=== PATIENT | male | born 1970 | race Hispanic/Latino ===

== ENCOUNTER 2017-04-22 00:18 | Inpatient (IN) | payer OTHER, SELFPAY ==
[~2017-04-22] VITALS: Ht 165.1 cm; Wt 101.8 kg
[2017-04-22] MEDS ORDERED: ONDANSETRON HCL 4 MG/2 ML VIAL ONE (01:12)
[2017-04-22] MEDS ORDERED: FAMOTIDINE/PF 20 MG/2 ML VIAL IV ONE ×2 (01:12→06:29)
[2017-04-22 01:28] LABS: BASOPHILS % (AUTO) 0.2 % (0.0-5.0); EOSINOPHILS % (AUTO) 1.8 % (0.0-8.0); HEMATOCRIT 43.7 % (42-54); LYMPHOCYTES % (AUTO) 9.3 % (21.0-51.0); MEAN CORPUSCULAR HEMOGLOBIN 32.5 pg (27.0-33.0); MEAN CORPUSCULAR HGB CONC 35.7 g/dL (32.0-36.0); NEUTROPHILS % (AUTO) 73.7 % (40.0-77.0); NUCLEATED RED BLOOD CELLS 0.1 % (0.0-0.19); PLATELET COUNT (AUTO) 251 K/uL (130-400); RED BLOOD CELL COUNT(AUTO) 4.81 MIL/uL (4.50-6.20); RED CELL DISTRIBUTION WIDTH 13.9 % (11.0-15.5)
[2017-04-22] MEDS ORDERED: HYOSCYAMINE SULFATE 0.125 MG TAB.SUBL SL ONE (01:51)
[2017-04-22 01:53] LABS: ALBUMIN 2.6 g/dL (3.5-5.0); BILIRUBIN,TOTAL 1.5 mg/dL (0.2-1.0); CREATININE 0.9 mg/dL (0.5-1.5); POTASSIUM 3.3 mmol/L (3.5-5.1); TOTAL PROTEIN, SERUM 7.5 g/dL (6.0-8.3)
[2017-04-22] MEDS ORDERED: IOPAMIDOL-370 75 ML VIAL IV ONE (02:17)
[2017-04-22 02:37] LABS: APPEARANCE,URINE Clear (CLEAR); BILIRUBIN,URINE Negative (NEGATIVE); COLOR,URINE Yellow (YELLOW); GLUCOSE, URINE (UA) Negative (NEGATIVE); KETONES,URINE 15 mg/dL (NEGATIVE); LEUKOCYTE ESTERASE ,URINE Negative (NEGATIVE); NITRATE,URINE Negative (NEGATIVE); OCCULT BLOOD,URINE Negative (NEGATIVE); PROTEIN,URINE Negative (NEGATIVE)
[2017-04-22 02:44] LABS: AMPHET/METH SCREEN,URINE NEGATIVE (NEGATIVE); BARBITURATE SCREEN, URINE NEGATIVE (NEGATIVE); BENZODIAZEPINES SCREEN,URINE NEGATIVE (NEGATIVE); CANNABINOID SCREEN,URINE NEGATIVE (NEGATIVE); COCAINE SCREEN,URINE NEGATIVE (NEGATIVE); OPIATE SCREEN,URINE NEGATIVE (NEGATIVE); PHENCYCLIDINE SCREEN,URINE NEGATIVE (NEGATIVE)
[2017-04-22] MEDS ORDERED: LEVOFLOXACIN 500 MG/D5W 100 ML 100 ML ONE (04:07)
[2017-04-22] MEDS ORDERED: METRONIDAZOLE 500MG/100ML BAG 100 ML ONE (04:08)
[2017-04-22] MEDS: SODIUM CHLORIDE 0.9% 1000ML 1,000 ML IV SCH ×3 (05:43→22:33)
[2017-04-22] MEDS ORDERED: ONDANSETRON HCL 4 MG/2 ML VIAL IV PRN (05:45)
[2017-04-22] MEDS ORDERED: POTASSIUM CHLORIDE 10MEQ/100ML 10 MEQ/100 ML ML IV SCH (05:45)
[2017-04-22] MEDS ORDERED: HYDRALAZINE HCL 20 MG/ML VIAL IV PRN (05:45)
[2017-04-22] MEDS ORDERED: POTASSIUM CHLORIDE 10 MEQ in SODIUM CHLORIDE 0.9% 100 ML IV SCH (07:57)
[2017-04-22] MEDS: MEROPENEM 1 GM VIAL IVP SCH ×3 (07:58→22:26)
[2017-04-22] MEDS ORDERED: SODIUM CHLORIDE 0.9% 1000ML 1,000 ML IV ONE (08:55)
[2017-04-22] MEDS: FAMOTIDINE/PF 20 MG/2 ML VIAL IV SCH ×2 (09:00→20:27)
[2017-04-22] MEDS ORDERED: MORPHINE SULFATE 2 MG/ML 1ML SYG ONE ×2 (09:00→12:58)
[2017-04-22 10:46] LABS: PARTIAL THROMBOPLASTIN TIME 29.2 SEC (26.3-35.5)
[2017-04-22 11:07] LABS: INR 1.04 (0.85-1.15); PROTHROMBIN TIME 10.9 SEC (9.6-11.6)
[2017-04-22] MEDS ORDERED: MEROPENEM 1GM IVPB PREMIXED 1 GM IV SCH (12:00)
[2017-04-22] MEDS ORDERED: MEROPENEM 1 GM VIAL ONE (12:58)
[2017-04-22] MEDS: FLUCONAZOLE 200 MG/NS 100 ML 100 ML IV SCH (17:00)
[2017-04-22 17:30] VITALS: BP 102/64
[2017-04-22] MEDS ORDERED: FLU VACC QS2017-18 36MOS UP/PF 60 MCG/0.5 ML ML IM ONE (18:45)
[2017-04-22 20:10] VITALS: BP 121/72
[2017-04-22] MEDS: MORPHINE SULFATE 2 MG/ML 1ML SYG IV PRN (20:33)
[2017-04-23 00:13] VITALS: BP 101/66
[2017-04-23 04:20] VITALS: BP 103/64
[2017-04-23 04:56] LABS: HEMATOCRIT 42.6 % (42-54); MEAN CORPUSCULAR HEMOGLOBIN 32.7 pg (27.0-33.0); MEAN CORPUSCULAR HGB CONC 35.4 g/dL (32.0-36.0); MEAN CORPUSCULAR VOLUME 92.3 fL (79-99); PLATELET COUNT (AUTO) 227 K/uL (130-400); RED BLOOD CELL COUNT(AUTO) 4.61 MIL/uL (4.50-6.20); RED CELL DISTRIBUTION WIDTH 13.2 % (11.0-15.5); WHITE BLOOD COUNT (AUTO) 7.2 K/uL (4.8-10.8)
[2017-04-23 05:16] LABS: CREATININE 1.1 mg/dL (0.5-1.5); MAGNESIUM 2.2 mg/dL (1.80-2.40); POTASSIUM 3.5 mmol/L (3.5-5.1)
[2017-04-23] MEDS: MEROPENEM 1 GM VIAL IVP SCH ×3 (06:01→22:02)
[2017-04-23 08:22] VITALS: BP 119/74
[2017-04-23] MEDS: FAMOTIDINE/PF 20 MG/2 ML VIAL IV SCH ×2 (09:14→20:50)
[2017-04-23 12:00] VITALS: BP 100/66
[2017-04-23] MEDS: SODIUM CHLORIDE 0.9% 1000ML 1,000 ML IV SCH ×2 (12:27→22:04)
[2017-04-23 16:00] VITALS: BP 101/74
[2017-04-23] MEDS: FLUCONAZOLE 200 MG/NS 100 ML 100 ML IV SCH (16:50)
[2017-04-23 20:00] VITALS: BP 117/69
[2017-04-24] VITALS: BP 102/62
[2017-04-24 04:00] VITALS: BP 110/70
[2017-04-24] MEDS: MEROPENEM 1 GM VIAL IVP SCH ×3 (05:49→22:38)
[2017-04-24 08:00] VITALS: BP 111/71
[2017-04-24] MEDS: SODIUM CHLORIDE 0.9% 1000ML 1,000 ML IV SCH ×2 (09:55→17:54)
[2017-04-24] MEDS: FAMOTIDINE/PF 20 MG/2 ML VIAL IV SCH ×2 (10:03→22:38)
[2017-04-24 12:00] VITALS: BP 113/80
[2017-04-24] MEDS ORDERED: SIMETHICONE 40 MG/0.6 ML ML PO PRN (12:45)
[2017-04-24] MEDS ORDERED: FISH1CAP20 PO (15:20)
[2017-04-24] MEDS ORDERED: ASPI-1005 PO (15:20)
[2017-04-24] MEDS ORDERED: MULT-1203 PO (15:20)
[2017-04-24] MEDS ORDERED: TELM1TAB34 PO (15:20)
[2017-04-24 15:50] VITALS: BP 129/93
[2017-04-24] MEDS: FLUCONAZOLE 200 MG/NS 100 ML 100 ML IV SCH (17:53)
[2017-04-24 20:00] VITALS: BP 126/76
[2017-04-25] VITALS (23 sets, daily range): BP systolic 114–145; BP diastolic 72–96
[2017-04-25] MEDS: SODIUM CHLORIDE 0.9% 1000ML 1,000 ML IV SCH (03:57)
[2017-04-25 04:46] LABS: HEMATOCRIT 43.2 % (42-54); MEAN CORPUSCULAR HEMOGLOBIN 32.4 pg (27.0-33.0); MEAN CORPUSCULAR HGB CONC 34.9 g/dL (32.0-36.0); MEAN CORPUSCULAR VOLUME 92.7 fL (79-99); PLATELET COUNT (AUTO) 245 K/uL (130-400); RED BLOOD CELL COUNT(AUTO) 4.66 MIL/uL (4.50-6.20); RED CELL DISTRIBUTION WIDTH 13.1 % (11.0-15.5); WHITE BLOOD COUNT (AUTO) 7.8 K/uL (4.8-10.8)
[2017-04-25 05:22] LABS: INR 1.16 (0.85-1.15); PARTIAL THROMBOPLASTIN TIME 27.8 SEC (26.3-35.5); PROTHROMBIN TIME 12.1 SEC (9.6-11.6)
[2017-04-25 05:29] LABS: MAGNESIUM 2.1 mg/dL (1.80-2.40); POTASSIUM 3.9 mmol/L (3.5-5.1)
[2017-04-25] MEDS: MEROPENEM 1 GM VIAL IVP SCH ×3 (06:04→22:06)
[2017-04-25] MEDS: FAMOTIDINE/PF 20 MG/2 ML VIAL IV SCH ×2 (08:41→22:06)
[2017-04-25] MEDS ORDERED: LACTATED RINGERS 1000ML 1,000 ML IV ONE (12:21)
[2017-04-25] MEDS ORDERED: MIDAZOLAM HCL 1 MG/ML 2ML VIAL ONE (12:58)
[2017-04-25] MEDS ORDERED: FENTANYL CITRATE PF 50 MCG/1 ML 2ML VIAL ONE (12:58)
[2017-04-25] MEDS ORDERED: ROCURONIUM BROMIDE 10MG/1ML 5ML VL ONE (13:21)
[2017-04-25] MEDS ORDERED: FENTANYL CITRATE PF 50 MCG/1 ML 5ML AMP IV ONE (13:21)
[2017-04-25] MEDS ORDERED: SUCCINYLCHOLINE 200MG/10ML SYR ONE (13:21)
[2017-04-25] MEDS ORDERED: ONDANSETRON HCL 4 MG/2 ML VIAL ONE ×2 (13:21→13:24)
[2017-04-25] MEDS ORDERED: PROPOFOL 10 MG/ML 20ML VIAL IV ONE (13:22)
[2017-04-25] MEDS ORDERED: ONDANSETRON HCL MDV 20ML 2 MG/ML VIAL ONE (15:49)
[2017-04-25] MEDS ORDERED: DEXAMETHASONE SOD PHOSPHATE 10MG/ML 1ML VIAL ONE (15:49)
[2017-04-25] MEDS ORDERED: MORPHINE SULFATE 10 MG/ML 1ML SYG ONE (15:50)
[2017-04-25] MEDS ORDERED: PHENYLEPHRINE HCL 10 MG/ML 1ML VIAL IV ONE (15:50)
[2017-04-25] MEDS ORDERED: LIDOCAINE HCL 2% JELLY 5 ML ONE (15:52)
[2017-04-25] MEDS ORDERED: MEPERIDINE-PF 25 MG/ML SYG ONE (17:04)
[2017-04-25] MEDS ORDERED: KETOROLAC TROMETHAMINE 30MG/ML ONE (17:04)
[2017-04-25] MEDS: D5W-1/2 NS/20MEQ KCL 1,000 ML IV SCH (19:06)
[2017-04-25] MEDS: FLUCONAZOLE 200 MG/NS 100 ML 100 ML IV SCH (19:08)
[2017-04-25] MEDS: MORPHINE SULFATE 4 MG/1ML SYG IV PRN (22:06)
[2017-04-26] MEDS: MORPHINE SULFATE 4 MG/1ML SYG IV PRN (02:30)
[2017-04-26] MEDS: D5W-1/2 NS/20MEQ KCL 1,000 ML IV SCH ×2 (03:27→14:55)
[2017-04-26 04:55] LABS: BASOPHILS % (AUTO) 0.2 % (0.0-5.0); EOSINOPHILS % (AUTO) 0.1 % (0.0-8.0); HEMATOCRIT 44.9 % (42-54); LYMPHOCYTES % (AUTO) 9.8 % (21.0-51.0); MEAN CORPUSCULAR HEMOGLOBIN 31.9 pg (27.0-33.0); MEAN CORPUSCULAR HGB CONC 34.4 g/dL (32.0-36.0); MEAN CORPUSCULAR VOLUME 92.6 fL (79-99); MONOCYTES % (AUTO) 8.5 % (3.0-13.0); NEUTROPHILS % (AUTO) 81.4 % (40.0-77.0); PLATELET COUNT (AUTO) 270 K/uL (130-400); RED BLOOD CELL COUNT(AUTO) 4.85 MIL/uL (4.50-6.20); WHITE BLOOD COUNT (AUTO) 12.4 K/uL (4.8-10.8)
[2017-04-26 05:01] LABS: POTASSIUM 4.3 mmol/L (3.5-5.1)
[2017-04-26] MEDS: MEROPENEM 1 GM VIAL IVP SCH ×3 (06:33→21:41)
[2017-04-26 08:11] VITALS: BP 115/88
[2017-04-26] MEDS: FAMOTIDINE/PF 20 MG/2 ML VIAL IV SCH ×2 (09:51→21:42)
[2017-04-26] MEDS ORDERED: KETOROLAC TROMETHAMINE 30MG/ML IM PRN (12:00)
[2017-04-26] MEDS ORDERED: PHENOL 177 ML BOTTLE PO PRN (12:00)
[2017-04-26 12:14] VITALS: BP 115/80
[2017-04-26] MEDS: MORPHINE SULFATE 2 MG/ML 1ML SYG IV PRN (12:54)
[2017-04-26 15:36] VITALS: BP 121/78
[2017-04-26] MEDS: FLUCONAZOLE 200 MG/NS 100 ML 100 ML IV SCH (17:32)
[2017-04-26 20:00] VITALS: BP 120/78
[2017-04-26] MEDS: KETOROLAC TROMETHAMINE 30MG/ML IV PRN (21:41)
[2017-04-27] VITALS (7 sets, daily range): BP systolic 110–135; BP diastolic 79–88
[2017-04-27] MEDS: MORPHINE SULFATE 2 MG/ML 1ML SYG IV PRN ×2 (01:02→19:50)
[2017-04-27] MEDS: D5W-1/2 NS/20MEQ KCL 1,000 ML IV SCH ×3 (01:07→18:46)
[2017-04-27 04:34] LABS: BASOPHILS % (AUTO) 0.4 % (0.0-5.0); EOSINOPHILS % (AUTO) 1.8 % (0.0-8.0); HEMATOCRIT 41.4 % (42-54); LYMPHOCYTES % (AUTO) 18.8 % (21.0-51.0); MEAN CORPUSCULAR HEMOGLOBIN 32.4 pg (27.0-33.0); MEAN CORPUSCULAR HGB CONC 34.9 g/dL (32.0-36.0); MEAN CORPUSCULAR VOLUME 92.7 fL (79-99); MONOCYTES % (AUTO) 9.6 % (3.0-13.0); NEUTROPHILS % (AUTO) 69.4 % (40.0-77.0); PLATELET COUNT (AUTO) 269 K/uL (130-400); RED BLOOD CELL COUNT(AUTO) 4.47 MIL/uL (4.50-6.20); RED CELL DISTRIBUTION WIDTH 13.1 % (11.0-15.5); WHITE BLOOD COUNT (AUTO) 10.2 K/uL (4.8-10.8)
[2017-04-27 04:46] LABS: CREATININE 0.9 mg/dL (0.5-1.5); POTASSIUM 3.9 mmol/L (3.5-5.1)
[2017-04-27] MEDS: MEROPENEM 1 GM VIAL IVP SCH ×3 (06:45→21:04)
[2017-04-27] MEDS: FAMOTIDINE/PF 20 MG/2 ML VIAL IV SCH ×2 (09:04→19:50)
[2017-04-27] MEDS: KETOROLAC TROMETHAMINE 30MG/ML IV PRN (14:41)
[2017-04-27] MEDS: FLUCONAZOLE 200 MG/NS 100 ML 100 ML IV SCH (17:35)
[2017-04-27] MEDS: METOCLOPRAMIDE 10 MG/2 ML VIAL IVP SCH (23:25)
[2017-04-28] MEDS: D5W-1/2 NS/20MEQ KCL 1,000 ML IV SCH ×3 (02:19→23:41)
[2017-04-28 03:42] VITALS: BP 121/75
[2017-04-28] MEDS: MEROPENEM 1 GM VIAL IVP SCH ×3 (05:10→21:38)
[2017-04-28] MEDS: METOCLOPRAMIDE 10 MG/2 ML VIAL IVP SCH (05:11)
[2017-04-28] MEDS: KETOROLAC TROMETHAMINE 30MG/ML IV PRN ×2 (06:41→21:52)
[2017-04-28 07:13] LABS: BASOPHILS % (AUTO) 0.5 % (0.0-5.0); EOSINOPHILS % (AUTO) 3.2 % (0.0-8.0); HEMATOCRIT 44.8 % (42-54); LYMPHOCYTES % (AUTO) 16.9 % (21.0-51.0); MEAN CORPUSCULAR HEMOGLOBIN 32.2 pg (27.0-33.0); MEAN CORPUSCULAR HGB CONC 34.7 g/dL (32.0-36.0); MEAN CORPUSCULAR VOLUME 92.8 fL (79-99); MONOCYTES % (AUTO) 10.6 % (3.0-13.0); NEUTROPHILS % (AUTO) 68.8 % (40.0-77.0); PLATELET COUNT (AUTO) 284 K/uL (130-400); RED BLOOD CELL COUNT(AUTO) 4.83 MIL/uL (4.50-6.20); RED CELL DISTRIBUTION WIDTH 12.9 % (11.0-15.5); WHITE BLOOD COUNT (AUTO) 9.3 K/uL (4.8-10.8)
[2017-04-28 07:23] LABS: CREATININE 0.9 mg/dL (0.5-1.5); POTASSIUM 4.4 mmol/L (3.5-5.1)
[2017-04-28 08:00] VITALS: BP 120/83
[2017-04-28] MEDS: MORPHINE SULFATE 4 MG/1ML SYG IV PRN ×2 (08:00→15:56)
[2017-04-28 12:05] VITALS: BP 127/87
[2017-04-28] MEDS: FAMOTIDINE/PF 20 MG/2 ML VIAL IV SCH ×2 (13:31→20:59)
[2017-04-28 15:59] VITALS: BP 127/91
[2017-04-28] MEDS: FLUCONAZOLE 200 MG/NS 100 ML 100 ML IV SCH (17:00)
[2017-04-28 20:00] VITALS: BP 132/88
[2017-04-28 23:56] VITALS: BP 116/73
[2017-04-29 04:00] VITALS: BP 126/83
[2017-04-29] MEDS: MEROPENEM 1 GM VIAL IVP SCH ×2 (05:16→14:28)
[2017-04-29 06:42] LABS: BASOPHILS % (AUTO) 0.7 % (0.0-5.0); EOSINOPHILS % (AUTO) 4.6 % (0.0-8.0); HEMATOCRIT 45.9 % (42-54); LYMPHOCYTES % (AUTO) 21.4 % (21.0-51.0); MEAN CORPUSCULAR HEMOGLOBIN 32.7 pg (27.0-33.0); MEAN CORPUSCULAR HGB CONC 34.7 g/dL (32.0-36.0); MEAN CORPUSCULAR VOLUME 94.2 fL (79-99); MONOCYTES % (AUTO) 10.2 % (3.0-13.0); NEUTROPHILS % (AUTO) 63.1 % (40.0-77.0); PLATELET COUNT (AUTO) 269 K/uL (130-400); RED BLOOD CELL COUNT(AUTO) 4.87 MIL/uL (4.50-6.20); RED CELL DISTRIBUTION WIDTH 13.2 % (11.0-15.5); WHITE BLOOD COUNT (AUTO) 7.5 K/uL (4.8-10.8)
[2017-04-29 06:54] LABS: POTASSIUM 4.7 mmol/L (3.5-5.1)
[2017-04-29 08:26] VITALS: BP 135/89
[2017-04-29] MEDS: D5W-1/2 NS/20MEQ KCL 1,000 ML IV SCH (09:44)
[2017-04-29] MEDS: MORPHINE SULFATE 2 MG/ML 1ML SYG IV PRN ×3 (09:44→21:55)
[2017-04-29] MEDS: FAMOTIDINE/PF 20 MG/2 ML VIAL IV SCH ×2 (09:44→20:16)
[2017-04-29 12:01] VITALS: BP 112/75
[2017-04-29] MEDS: FLUCONAZOLE 200 MG/NS 100 ML 100 ML IV SCH (17:01)
[2017-04-29 17:51] VITALS: BP 123/77
[2017-04-29 20:00] VITALS: BP 140/96
[2017-04-29] MEDS: METRONIDAZOLE 500 MG TABLET PO SCH (20:16)
[2017-04-29] MEDS ORDERED: FLU VACC QS2017-18 36MOS UP/PF 60 MCG/0.5 ML ML IM SCH (20:30)
[2017-04-29 23:59] VITALS: BP 122/78
[2017-04-30] MEDS: METRONIDAZOLE 500 MG TABLET PO SCH ×3 (02:02→17:17)
[2017-04-30] MEDS: D5W-1/2 NS/20MEQ KCL 1,000 ML IV SCH (02:03)
[2017-04-30 04:00] VITALS: BP 130/88
[2017-04-30 08:49] VITALS: BP 123/83
[2017-04-30] MEDS: FAMOTIDINE/PF 20 MG/2 ML VIAL IV SCH (09:11)
[2017-04-30] MEDS: MORPHINE SULFATE 2 MG/ML 1ML SYG IV PRN (10:19)
[2017-04-30 11:57] VITALS: BP 117/79
[2017-04-30] MEDS: FLUCONAZOLE 200 MG/NS 100 ML 100 ML IV SCH (17:19)
[2017-04-30 17:44] VITALS: BP 125/87
== END 2017-04-30 19:44 | disposition home or self-care (01) | DRG 330 ==
LOC: EDH 00:18 → EDHIP 00:19 → 3DH 18:02
PROVIDERS: ADMIT Family Medicine; ATTEND Family Medicine
PROC: 3E0234Z Introduction of Serum, Toxoid and Vaccine into Muscle, Percutaneous Approach (ICD-10-PCS; 2017-04-25)
PROC: 0D1N0Z4 Bypass Sigmoid Colon to Cutaneous, Open Approach (ICD-10-PCS; principal; 2017-04-25 14:24)
PROC: 0DBN0ZZ Excision of Sigmoid Colon, Open Approach (ICD-10-PCS; 2017-04-25 14:24)
DX: K57.20 Diverticulitis of large intestine with perforation and abscess without bleeding (principal); K56.699 Other intestinal obstruction unspecified as to partial versus complete obstruction; E87.1 Hypo-osmolality and hyponatremia; E87.6 Hypokalemia; I10 Essential (primary) hypertension; E66.9 Obesity, unspecified; F10.10 Alcohol abuse, uncomplicated; E78.5 Hyperlipidemia, unspecified; Z68.37 Body mass index [BMI] 37.0-37.9, adult; Z23 Encounter for immunization
CPT/HCPCS: 36415; 74177; 74178; 80048; 80053; 80305; 81003; 82550; 83690; 83735; 84484; 85025; 85027; 85610; 85730; 87070; 87076; 87205; 88307; 93005; A4218; A4344; A5061; G0008; J0330; J1100; J1450; J1885; J1956; J2175; J2185; J2250; J2270; J2370; J2405; J2704; J2765; J3010; J3480; J3490; J7030; J7120; Q2038; Q9967

== ENCOUNTER → 2018-06-25 | Outpatient (CLI) | payer SELFPAY ==
[~2018-06-25] MED LIST: ASPI-1005 PO; DIATR MEGLU/DIATRIZOATE SODIUM 30 ML BOTTLE ONE; FISH1CAP20 PO; MULT-1203 PO; TELM1TAB34 PO
== END | disposition home or self-care (01) ==
LOC: RAH 08:40
PROVIDERS: ATTEND Surgery
DX: K57.92 Diverticulitis of intestine, part unspecified, without perforation or abscess without bleeding (principal); Z93.3 Colostomy status
CPT/HCPCS: 74270; Q9963 ×2